=== PATIENT | male | born 2000 | race Caucasian/White ===

== ENCOUNTER → 2018-12-31 18:44 | Outpatient (CLI) | payer OTHER, MEDICAID, SELFPAY ==
--- NOTE | 2018-12-31 | DI.MRI.S_ITS ---
PROCEDURE: MR KNEE RT WO CON INDICATIONS: RIGHT KNEE PAIN TECHNIQUE: Noncontrast sagittal PD fast spin echo and T2 fast spin echo with fat saturation, sagittal 3-D FLASH with fat saturation; coronal T1 spin echo and PD fast spin echo with fat saturation, and axial PD fast spin echo with fat saturation through the knee. COMPARISON: None. FINDINGS: Image quality: Excellent. Menisci: Bucket handle type tear involving medial meniscus is seen with centrally displaced torn medial meniscal fragment anterior to the posterior cruciate ligament. There is no evidence of focal lateral meniscal tear. The meniscal root ligaments appear intact. Cruciate ligaments: The anterior and posterior cruciate ligaments appear intact. Medial structures: The medial collateral ligament appears intact. The posterior oblique ligament, semimembranosus tendon insertions, oblique popliteal ligament, and meniscocapsular junction appear intact. Visualized portions of the pes anserinus tendons appear normal. No abnormal bursal fluid. Lateral structures: The lateral collateral ligament, long and short heads of the biceps femoris tendon appear intact. The popliteus tendon appears normal; the popliteofibular ligament appears intact. The posterosuperior and anteroinferior popliteomeniscal fascicles appear intact. The arcuate and fabellofibular ligaments appear intact, on either side of the lateral inferior geniculate artery. Iliotibial band appears normal. Anterior structures: The quadriceps and patellar tendons appear intact. Patellar alignment is normal. No femoral trochlear dysplasia or ventral trochlear prominence. No edema in the infrapatellar fat pad. Bones and cartilage: No bone marrow contusions or fractures. The cartilage of the medial and lateral femorotibial compartments, as well as the patellofemoral compartment, appears normal in thickness. Joint space: There is small amount of joint fluid. No Brantley's cyst. Normal appearing synovial plicae are incidentally noted. IMPRESSION: 1. Bucket-handle type tear involving medial meniscus as above. No evidence of focal lateral meniscal tear. 2. Cruciate ligaments are intact. 3. No marrow edema. No fracture or dislocation. Articulating cartilages are intact. Small amount of joint fluid, no gross loose body. Dictated by: Jairo Holt M.D. on 01/01/2019 at 9:54 Approved by: Jairo Holt M.D. on 01/01/2019 at 9:56
== END ==
PROVIDERS: PCP Family Medicine; Visit Provider Family Medicine
DX: M25.561 Pain in right knee (principal); S83.211A Bucket-handle tear of medial meniscus, current injury, right knee, initial encounter
CPT/HCPCS: 73721